=== PATIENT | male | born 1955 | race Caucasian/White ===

== ENCOUNTER 2025-09-20 14:04 | Observation (INO) | payer OTHER, SELFPAY ==
[2025-09-20] VITALS (12 sets, daily range): BP systolic 122–140; BP diastolic 76–82; PULSE 66–85; RESP 16; TEMP 36.2–37.2; O2SAT 95–100; BMI 20.8
[2025-09-20] MEDS: Lactated Ringers 1,000 ML 15 ML IV (11:17)
--- NOTE | 2025-09-20 11:38 | PCM.PRE.AN2 ---
ASA Classification* ASA Classification ASA Classification: 2 (Bladder tumor. Patient denies all PMHx. Not on any medications. No past surgeries. ) Assessment & Plan Anesthesia* Anesthesia Assessment Anesthesia Assessment: Discussed sedation and/or anesthesia options, risks, benefits, and alternatives with patient/parents/legal guardian/POA. Questions invited. The patient/parents/legal guardian/POA seems to understand and agrees to proceed with anesthesia plan. Reviewed the physical assessment, medical history, allergy history and patient home medications list prior to surgery/procedure/anesthetic and documented any changes. Performed airway and anesthesia risk assessments. 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 When Was Last Pacemaker Check QUESTION #4 FULL TEXT: You/Your Family Experience fever (hyperthermia) with Anesthesia Last Oral Intake Last Oral intake: Last Oral Intake NPO since 06:30 09/20/25 11:10 Meds taken in AM with sips of No 09/20/25 11:10 water? Meds patient instructed to take am of surgery PONV PONV - geotechnical engineer: PONV - geotechnical engineer Female No 09/13/25 11:05 HX of Motion Sickness No 09/13/25 11:05 HX of N/V After Surgery No 09/13/25 11:05 Non-Smoker Yes 09/13/25 11:05 Duration of Surgery greater Yes 09/13/25 11:05 than 60 minutes Number of Risk Factors 2 09/13/25 11:05 PONV Score Moderate Risk 09/13/25 11:05 Height & Weight Height & Weight: Anesthesia: Height & Weight Height 5 ft 10 in 09/20/25 11:10 Weight: 66 kg 09/20/25 11:10 Body Mass Index (BMI) 20.8 09/20/25 11:10 Respiratory Assessment Respiratory Assessment - geotechnical engineer: Respiratory Tract Infection Hx - geotechnical engineer Hx Respiratory Tract Infection No 09/13/25 11:05 STOP Sleep Apnea STOP Sleep Apnea - geotechnical engineer: STOP Sleep Apnea - geotechnical engineer Hx Hypertension No 09/13/25 11:05 Hx Sleep Apnea No 09/13/25 11:05 CPAP BIPAP Do you snore loudly (louder No 09/13/25 11:05 than talking or can be heard Do you often feel tired/ Yes 09/13/25 11:05 fatigued/ sleepy during daytime? Has anyone observed you stop Yes 09/13/25 11:05 breathing during sleep? STOP Results Positive 09/13/25 11:05 QUESTION #5 FULL TEXT : Do you snore loudly (louder than talking or can be heard through closed doors)? 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 Specify any problems Hx of Preganancy in last 3 N/A 09/13/25 11:05 Months Nurse Filling Out Transfusion DSCHRIBER 09/13/25 11:05 & Questions: Date: 09/13/25 09/13/25 11:05 Time: 11:06 09/13/25 11:05 Patient unable to answer at this time (ie. confused, unrespo /Reproduction History /Reproductive History - geotechnical engineer: /Reproductive Hx- geotechnical engineer Hx Now No 09/13/25 11:05 Gestational Age (in weeks): EDC: Hx Hx Para Hx Section SAB No 09/13/25 11:05 Does the father of the baby or his family experience fever w Father of the baby Malignant Hypertension history comment Active Medications Active Medications: Current Medications Generic Name Dose Route Start Last Admin Trade Name Freq PRN Reason Stop Dose Admin Cefazolin Sodium 2 gm/ Sodium 110 mls @ 200 mls/hr 09/20/25 12:30 Chloride IV 09/20/25 13:02 INTRAOP ONE Mitomycin 40 mg/ N/A 40 mls @ 2,400 mls/hr 09/20/25 12:30 INSTILLAT 09/20/25 12:31 X1 ONE Lactated Ringer's 1,000 mls @ 15 mls/hr 09/20/25 11:00 09/20/25 11:17 IV 15 mls/hr .Q48H DOREEN Administration PFSH Medical History (Updated 09/13/25 @ 11:12 by Marisol Mcleod) Loss of hearing Bladder disease High cholesterol Non-smoker Leg cramps Home Medications ?Medication ?Instructions ?Recorded ?Last Taken ?Type cyanocobalamin (vitamin B-12) 100 300 mcg PO TID 09/13/25 09/19/25 History mcg tablet geriatric multivitamin-min 1 cap PO DAILY 09/13/25 09/19/25 History Allergy/AdvReac Type Severity Reaction Status Date / Time No Known Allergies Allergy Verified 09/20/25 11:08 Surgical History (Updated 09/13/25 @ 11:12 by Marisol Mcleod) No history of previous surgery Social History Smoking Status: Never smoker Review of Systems (Anesthesia) ROS Narrative System reviewed and no additional complaints, except as documented.
--- NOTE | 2025-09-20 12:30 | BLB_PTH ---
PATIENT: RADHA GRIDER LOC: [facility] U#:[id number] AGE/SX: 69/M ROOM: PA308 RE09/20/[address]: Dr. Jair Rose MD : 1955 BED: 1 DIS: 09/21/2025 SPEC #: [id number] RECD: 09/20/25 14:31 STATUS: AURELIANO FISCHER #: [id number] GAYLE: 09/20/25 12:[address]: Jair Rose DEPT: SURGICAL PATHOLOGY RECD BY: Sonny Zhong ENTERED: 09/21/25 10:18 SP TYPE: TURB OTHR DR: Dr. Keegan Seay MD Tissues: A - Urinary bladder, NOS Procedures: Surgery Specimen Level V HEADER OPERATION: Cysto, transurethral resection of bladder tumor PRE-OP DIAGNOSIS: Bladder tumor TISSUE SUBMITTED: A- Bladder tumor MICROSCOPIC DIAGNOSIS A. Urinary bladder, transurethral resection: - Invasive urothelial carcinoma, high grade - The lamina propria is positive for malignancy - The muscularis propria is negative for malignancy MICROSCOPIC DESCRIPTION Slides are reviewed. GROSS DESCRIPTION A. Received in formalin labeled with the patient's name and date of . Designated as bladder tumor is a is a 9.4 x 7.6 x 1.7 cm aggregate of pink-light brown to sheriff friable tissue fragments and clotted blood. Entirely submitted in 20 cassettes. OR 09/21/2025 CPT:55598
[2025-09-20] MEDS: Cefazolin 1 GM/5 ML Vial 2 GM IV (12:50)
--- NOTE | 2025-09-20 12:51 | DCINST_ITS ---
Discharge Instructions DC O2, CPAP, BIPAP needs Home O2 Discharge instructions: No Dressing / Incision Discharge Activity: Return to Normal Activity and May Not Drive (while taking narcotic pain medications.) Dressing / Incision Call your doctor if you observe: Fever of 101 or Higher Follow Up Care Please Follow Up With: Jair Rose MD When: Call [phone] for an appointment Test Results: Test results from this visit will be discussed in further detail at your follow- up appointment, if applicable. Discharge Plan Admission Primary Reason for Your Visit: bladder tumor Attending Provider: Jair Rose Primary Care Provider: Keegan Seay Instructions Print Language: Mauritanian Discharge Orders/Prescriptions Prescriptions: New ciprofloxacin HCl [Cipro] 500 mg tablet 500 mg PO BID Qty: 10 0RF ibuprofen 600 mg tablet 600 mg PO Q6H PRN (Reason: fever or pain) Qty: 20 0RF Continued cyanocobalamin (vitamin B-12) 100 mcg tablet 300 mcg PO TID geriatric multivitamin-min Capsule 1 cap PO DAILY Referrals / Follow Up: Keegan Seay MD [Primary Care Provider, Medical] Disposition Disposition (needs filled in before D/C Order can be placed): Home, Self Care
[2025-09-20] MEDS: Lidocaine 1% (5 ml sdv) 5 ML Vial IV (12:55)
[2025-09-20] MEDS: fentaNYL 100 MCG/2 ML Ampul 200 MCG IV (13:38)
--- NOTE | 2025-09-20 14:07 | OP.PCM_ITS ---
Operative Report (Standard) Operative Information Date of Procedure: 09/20/25 Pre-Operative Diagnosis: Large bladder tumor greater than 6 cm Post-Operative Diagnosis: The same Surgery/Procedure Performed: Transurethral section of the large large bladder tumor and right stent placement, instillation of Mitomycin-C application security specialist: No Type of Anesthesia: General RN Documented Start/Stop Times: Operation Date: 09/20/25 12:30 Case Time Into Pre-Op 09/20/25 10:43 Out of Pre-Op 09/20/25 12:46 Anesthesia Start 09/20/25 12:50 Into Room 09/20/25 12:50 Procedure Start 09/20/25 13:04 Procedure Start Time: 12:50 Procedure Stop Time: 13:04 Select all DRAINS/GRAFTS/IMPLANTS that apply: Drains Drain details: 22 Syriac three-way Wilson Special Medications: Mitomycin-C instillation Estimated Blood Loss: 50 cc Specimen collected: Yes Description of specimen(s) removed: Bladder tumor resection Description of surgery: This is a 69-year-old male whose been having gross hematuria off-and-on for quite some time presents to the office for an evaluation cystoscopy was done to demonstrate a very large tumor in the lateral aspect of the bladder this appeared to be a large bladder cancer proceed with resection of this tumor and Mitomycin-C instillation post resection He was taken back to the operating room after induction of anesthesia he was placed in dorsolithotomy position within the bladder with a 21 Syriac rigid cystourethroscope the entire length of the urethra was clear the membranous urethra was quite tight I was able to go through this with the cystoscope and very tight like a mild stricture in the membranous urethra minimal got through this got inside the bladder I did a quinones cystoscopy with 30 and 70 degree lens and inside the bladder there was a large tumor coming from the patient's right lateral wall this is extremely large tumor occupying a lot of the bladder I then went in with a 26 Syriac continuous-flow resectoscope using the visual obturator once I got into switched over to the medium size loop started on top of the tumor and started resecting the tumor off the lateral wall of the bladder working my way down along the bladder wall the tumor was definitely invading into the mucosa probably the lamina propria but it was not clear muscle invasion that I could tell but I did get fairly deep muscle on that side. And then I resected all the way down to the floor taken this entire tumor with me as I resected coming all the way down there are ureteral orifice was resected but I really could not tell where it was as I was resecting it because it was old golf and the tumor and then after getting the tumor cleared out that identified the ureteral orifice so I went inside the bladder and I did place a stent on the right side through the orifice to make sure this heals up okay without any scar tissue I cauterized around this obtain hemostasis it still fairly bloody since it is large tumor we have put a Mitomycin-C instillation of the bladder with a 22 Syriac Wilson catheter after an hour will drain the Mitomycin-C and start irrigation as I suspect he is heri need continuous irrigation from such a large resection and to be kept in the hospital overnight for observation formal resection of very large tumor. Surgical Findings: Large tumor invading into the lateral side of the bladder Complications Complications: No Admit VTE Documentation VTE Present on Admission: No VTE Mechan Device Prophylaxis: SCD's VTE Pharm Prophylaxis ordered?: No
--- NOTE | 2025-09-20 14:34 | PCM.POST.ANE ---
Anesthesia: Postop Eval I Current Vital Signs Temperature: 97.3 F Pulse Rate: 82 Blood Pressure: 140/80 Respiratory Rate: 16 Pulse Ox: 100 Oxygen Delivery Method: Room Air Assessment Airway patent: Yes Spontaneous unlabored respirations: Yes Mental status: Awake and Calm nausea: No Vomiting: No Anesthesia Complication: No Fluid Hydration Crystalloid volume administer (ml): 800 Total IV fluid infused: 800 Progress Note Anesthesia document: Postop Eval 1 completed: Yes
--- NOTE | 2025-09-20 16:27 | POSTOPAN2_ITS ---
Anesthesia Postop Eval I Sum Postop Eval Completion status Anesthesia document: Postop Eval 1 completed: Yes Anesthesia Postop Eval I Summary Anesthesia Postop Eval I Summary: Anesthesia Postop Eval I: Assessment Summary Airway patent Yes 09/20/25 14:35 HUMAN RESOURCES [email or web address] Spontaneous unlabored Yes 09/20/25 14:35 HUMAN RESOURCES [email or web address] respirations Mental status Awake,Calm 09/20/25 14:35 HUMAN RESOURCES [email or web address] nausea No 09/20/25 14:35 HUMAN RESOURCES [email or web address] Vomiting No 09/20/25 14:35 HUMAN RESOURCES [email or web address] Anesthesia Postop Eval I: Fluid Summary Crystalloid volume administer 800 09/20/25 14:35 HUMAN RESOURCES [email or web address] (ml) Colloids volume administered ( ml) Blood Product volume administered (ml) Total IV fluid infused 800 09/20/25 14:35 HUMAN RESOURCES [email or web address] Anesthesia Postop Eval I: Summary Notes Anesthesia Complication No 09/20/25 14:35 HUMAN RESOURCES [email or web address] Anesthesia Complication Comment: Post-operative progress note Anesthesia: Postop Eval II Evaluation Mental status: Awake Pain Level: 0 nausea: No Vomiting: No Complications Anesthesia Complication: No
--- NOTE | 2025-09-20 16:27 | PCM.POSTANE2 ---
Anesthesia Postop Eval I Sum Postop Eval Completion status Anesthesia document: Postop Eval 1 completed: Yes Anesthesia Postop Eval I Summary Anesthesia Postop Eval I Summary: Anesthesia Postop Eval I: Assessment Summary Airway patent Yes 09/20/25 14:35 GRANTS [email or web address] Spontaneous unlabored Yes 09/20/25 14:35 GRANTS ANALYST.[email or web address] respirations Mental status Awake,Calm 09/20/25 14:35 GRANTS [email or web address] nausea No 09/20/25 14:35 GRANTS [email or web address] Vomiting No 09/20/25 14:35 GRANTS [email or web address] Anesthesia Postop Eval I: Fluid Summary Crystalloid volume administer 800 09/20/25 14:35 GRANTS [email or web address].SKOBY (ml) Colloids volume administered ( ml) Blood Product volume administered (ml) Total IV fluid infused 800 09/20/25 14:35 GRANTS ANALYST.[email or web address] Anesthesia Postop Eval I: Summary Notes Anesthesia Complication No 09/20/25 14:35 GRANTS ANALYST.[email or web address] Anesthesia Complication Comment: Post-operative progress note Anesthesia: Postop Eval II Evaluation Mental status: Awake Pain Level: 0 nausea: No Vomiting: No Complications Anesthesia Complication: No
[2025-09-20] MEDS: 0.9% Normal Saline (1000mL) 1,000 ML 125 ML IV (20:16)
[2025-09-21 00:08] VITALS: BP 120/74; PULSE 67; RESP 16; TEMP 36.9; O2SAT 96
[2025-09-21 04:34] VITALS: BP 110/60; PULSE 63; RESP 16; TEMP 36.4; O2SAT 99
--- NOTE | 2025-09-21 06:40 | NURSING ---
walking in [place] with patient transition specialist gait steady
--- NOTE | 2025-09-21 07:28 | PCM.PN.GU ---
Subjective Subjective Status post TURBT three-way catheter will stay in I plug the irrigation port patient can go home with a Wilson catheter and follow-up next week Thursday or Thursday my office for removal of the Wilson Objective Data Objective Data Vital Signs: Vital Signs Temp Pulse Resp BP Pulse Ox O2 Del Method 97.5 F L 63 16 110/60 99 Room Air 09/21/25 04:34 09/21/25 04:34 09/21/25 04:34 09/21/25 04:34 09/21/25 04:34 09/21/25 04:34 Oxygen Delivery Method Room Air Weight: 66 kg Body Mass Index (BMI) 20.8 Intake & Output: Intake and Output for Last 24 Hours 09/19/25 09/20/25 09/21/25 23:59 23:59 23:59 Intake Total 368.5 / 368.5 1000 / 1000 Output Total 2750 / 2750 1250 / 1250 Balance -2381.5 / -2381.5 -250 / -250
--- NOTE | 2025-09-21 07:29 | DCINST_ITS ---
Discharge Instructions DC O2, CPAP, BIPAP needs Home O2 Discharge instructions: No Dressing / Incision Discharge Activity: Return to Normal Activity and May Not Drive (while taking narcotic pain medications.) Dressing / Incision Call your doctor if you observe: Fever of 101 or Higher Catheter: Wilson to large bag Drain: [place] Follow Up Care Please Follow Up With: Jair Rose MD When: Call [phone] for an appointment Test Results: Test results from this visit will be discussed in further detail at your follow- up appointment, if applicable. Discharge Plan Admission Admit Date/Time: 09/20/25 14:04 Primary Reason for Your Visit: bladder tumor Attending Provider: Jair Rose Primary Care Provider: Keegan Seay Discharge Orders/Prescriptions Prescriptions: New ciprofloxacin HCl [Cipro] 500 mg tablet 500 mg PO BID Qty: 10 0RF ibuprofen 600 mg tablet 600 mg PO Q6H PRN (Reason: fever or pain) Qty: 20 0RF Continued cyanocobalamin (vitamin B-12) 100 mcg tablet 300 mcg PO TID geriatric multivitamin-min Capsule 1 cap PO DAILY Referrals / Follow Up: Keegan Seay MD [Primary Care Provider, Medical]
[2025-09-21] MEDS: 0.9% Saline Lock 10 ML Syringe IV (09:38)
--- NOTE | 2025-09-21 09:40 | CASEMGMT ---
Noted dc order placed and pt to dc with [facility]. RN CM into pt room, pt lying in bed with , dtr and nurse at bedside. Pt denies any concerns regarding returning home. Pt states he has not had a [facility] before. Nurse in room states she will educate pt and family on care. Pt states he would like the [facility] van to transport home. TC to [facility] transportation, they do not have any availbility today. 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 No further needs at this time.
[2025-09-21 10:08] VITALS: BP 120/63; PULSE 65; RESP 18; TEMP 36.6; O2SAT 98
--- NOTE | 2025-09-21 10:47 | PHA.DC.COU.R ---
Pharmacy [facility] has performed discharge medication counseling for this patient. The patient was counseled on the following discharge medications and changes in medications for homegoing review. - Ciprofloxacin 500 mg tablet, Ibuprofen 600 mg tablet The Reason for Use, instructions for use, and potential side effects were reviewed for all new medications. The patient's questions regarding all of their medications were answered. The patient was able to verbally demonstrate an understanding of their discharge medications. Medications at Discharge Home Medications cyanocobalamin (vitamin B-12) 100 mcg tablet 300 mcg PO TID 09/13/25 geriatric multivitamin-min 1 cap PO DAILY 09/13/25 ciprofloxacin HCl 500 mg tablet (Cipro) 500 mg PO BID #10 tabs 09/20/25 ibuprofen 600 mg tablet 600 mg PO Q6H PRN fever or pain #20 tabs 09/20/25
== END 2025-09-21 12:31 | disposition home or self-care (01) ==
LOC: SDC 16:03 → MS3 16:03
PROVIDERS: Admitting Provider Urology; PCP Family Medicine; Referring Provider Urology; Visit Provider Urology
PROC: 0T5B8ZZ Destruction of Bladder, Via Natural or Artificial Opening Endoscopic (ICD-10-PCS; CPT 51720; principal; 2025-09-20 12:15)
DX: C67.2 Malignant neoplasm of lateral wall of bladder (principal); R31.0 Gross hematuria
CPT/HCPCS: 52240; 00912; 88307; 96361; 96365; 96366; 99221; J9280; A4216; C1769; C2617; G0378; J0744; J2405